=== PATIENT | female | born 1960 | race Caucasian/White ===

== ENCOUNTER 2018-01-28 23:17 | Observation (INO) ==
[2018-01-28] MEDS ORDERED: 0.9 % Sodium Chloride 1,000 ML IVC ONE (23:55)
[2018-01-28] MEDS ORDERED: Metoclopramide 10 MG/2 ML VIAL IVP ONE (23:56)
--- NOTE | 2018-01-28 23:56 | Emergency Department Note ---
Disposition Clinical Impression: Nausea and vomiting Qualifiers: Vomiting type: unspecified Vomiting Intractability: intractable Qualified Code( s): R11.2 - Nausea with vomiting, unspecified Disposition: Admitted As Inpatient Condition: Good Time of Disposition: 01:17 (Dr Deleon) Nausea/Vomiting/Diarrhea HPI - General Chief complaint: ED Abdominal Pain Stated complaint: continued vomiting Time Seen by Provider: 01/28/18 23:26 Source: patient Mode of arrival: ambulatory Limitations: no limitations Nursing Notes Reviewed: Yes Vital Signs Reviewed: Yes - History of Present Illness Pt Subjective Complaint: nausea, vomiting, abdominal pain Onset (ago): day(s) (3) Description of emesis: watery Associated Abdominal Pain: Yes If pain, Location of pain: epigastric Severity: mild Quality: cramping, stabbing Consistency: constant (Waxing and waning) Worsens with: eating, vomiting Context: other (Patient was seen in the ED for similar complaints with undetermined etiology. She was discharged home with antiemetic medication with no improvement. The patient was also seen by PCP today and was given suppository medication with no improvement.) Associated symptoms: Reports: fever/chills, nausea/vomiting, weakness. Denies: myalgias, chest pain, cough, diaphoresis, headaches, loss of appetite, malaise, rash, dysuria, shortness of breath, syncope - Related Data Home Medications Medication Instructions Recorded Confirmed Levothyroxine [Synthroid] 88 mcg PO DAILY 06/14/15 01/28/18 FLUoxetine HCl [Sarafem] 10 mg PO 01/28/18 hydrOXYzine HCl [Hydroxyzine HCl] 25 mg PO 01/28/18 Previous Rx's Medication Instructions Recorded Dicyclomine [Bentyl] 10 mg PO QID #10 capsule 01/28/18 Omeprazole 20 mg PO DAILY #20 tablet. 01/28/18 Ondansetron ODT [Zofran ODT] 4 mg SL Q4HR PRN #12 tab.otf 01/28/18 Promethazine [Phenergan] 12.5 mg PO Q8HR PRN 3 Days #10 mg 01/28/18 Allergies Allergy/AdvReac Type Severity Reaction Status Date / Time Sulfa (Sulfonamide AdvReac Rash Verified 01/28/18 03:30 Antibiotics) tetanus immune globulin AdvReac Hives Verified 01/28/18 03:30 All systems ED: reviewed and negative except as stated. Review of Systems: As Per HPI Past Medical History - Past Medical History Medical history: Reports: thyroid disease Psychiatric history: Reports: anxiety - Social History Smoking Status: Never smoker Smokeless Tobacco Status: No Alcohol use: Reports: none Drug use: Reports: none Physical Exam - General Limitations: no limitations General appearance: alert, in distress - Head Head exam: atraumatic, normocephalic, normal inspection - Eye Eye exam: Present: normal appearance, PERRL, EOMI - ENT ENT exam: normal exam, normal oropharynx, mucous membranes moist - Neck Neck exam: Present: normal inspection, full ROM, trachea midline - Chest Chest inspection: Present: normal inspection, symmetric chest wall rise - Respiratory Respiratory exam: Present: normal lung sounds bilaterally - Cardiovascular Cardiovascular exam: Present: regular rate, normal rhythm, normal heart sounds - Abdominal Exam Abdominal exam: Present: soft, tenderness. Absent: distention, guarding, rebound, rigidity, normal bowel sounds, mass, pulsatile mass Abdominal tenderness: Present: epigastrium, mild - Extremities Exam Extremities exam: Present: normal inspection, full ROM, normal capillary refill. Absent: tenderness, pedal edema - Neurological Exam Neurological exam: Present: alert, oriented X3, CN II-XII intact - Skin Skin exam: Present: warm, dry, intact, normal color Course Vital Signs Temperature 98.5 F 01/28/18 23:18 Pulse Rate 90 01/28/18 23:18 Respiratory Rate 16 01/28/18 23:18 Blood Pressure 121/80 01/28/18 23:18 O2 Sat by Pulse Oximetry 94 01/28/18 23:18 Temperature 98.7 F 01/29/18 03:08 Pulse Rate 84 01/29/18 03:08 Respiratory Rate 18 01/29/18 03:08 Blood Pressure 132/74 01/29/18 03:08 O2 Sat by Pulse Oximetry 95 01/29/18 03:08 Oxygen Delivery Oxygen Delivery Room Air Nausea/Vomiting/Diarrhea - MDM Narrative Medical decision making narrative: Nonspecific intractable nausea and vomiting. There is no clinical suspicion for perforated viscus. She will be admitted for hydration as well as symptomatic treatment. - Differential Diagnosis Likely: gastroenteritis, drug-induced nausea and vomitting, dehydration - Medical Records Medical records reviewed: Yes I reviewed the patient's medical records. - Lab Data Lab results reviewed: Yes I reviewed the patient's lab results. Result diagrams: 01/29/18 00:23 01/29/18 00:23 Lab Results 01/28/18 01/29/18 01/29/18 Range/Units 01:18 00:23 00:23 WBC 10.0 (4.3-11.1) K/mcL RBC 4.17 (3.82-4.97) M/mcL Hgb 12.2 (11.5-15.4) g/dL Hct 37.5 (35.3-44.9) % MCV 89.9 (83.0-100.0) fL MCH 29.3 (28.0-33.3) pg MCHC 32.5 (31.6-35.5) g/dL RDW 11.9 (11.5-14.5) % Plt Count 242 (140-400) K/mcL MPV 9.7 (9.4-12.4) fL Immature Gran % 0.3 (0-4) % Seg Neutrophils % 75.5 % Lymphocytes % 15.9 % Monocytes % 7.1 % Eosinophils % 0.9 % Basophils % 0.3 % Neutrophils # 7.6 (1.6-8.9) K/mcL Lymphocytes # 1.6 (0.6-4.6) K/mcL Monocytes # 0.7 (0.0-1.3) K/mcL Eosinophils # 0.1 (0.0-0.6) K/mcL Basophils # 0.0 (0.0-0.2) K/mcL Sodium 141 (136-145) mEq/L Potassium 3.6 (3.5-5.1) mEq/L Chloride 106 (98-107) mEq/L Carbon Dioxide 27 (23-29) mEq/L BUN 12 (6-20) mg/dL Creatinine 0.62 (0.60-1.20) mg/dL Est GFR ( Amer) > 60 (> 60) Est GFR (Non-Af Amer) > 60 (> 60) BUN/Creatinine Ratio 19 (6-26) Glucose 93 (70-105) mg/dL Calculated Osmolality 291 (280-300) Lactic Acid (0.5-2.2) mmol/L Calcium 9.0 (8.6-10.3) mg/dL Total Bilirubin 0.5 (0.3-1.0) mg/dL Direct Bilirubin 0.1 (0.0-0.2) mg/dL Indirect Bilirubin 0.4 (0.0-1.2) mg/dL AST 17 (13-39) Units/L ALT 11 (7-52) Units/L Alkaline Phosphatase 56 (34-104) Units/L Serum Total Protein 6.3 L (6.4-8.9) g/dL Albumin 3.9 (3.5-5.7) g/dL Globulin 2.4 (2.4-3.5) g/dL Albumin/Globulin Ratio 1.6 (1.1-2.2) Amylase 22 L (29-103) Units/L Lipase 6 L (11-82) Units/L Urine Color Yellow (Yellow) Urine Clarity Clear (Clear) Urine pH 5.5 (5.0-8.0) pH Units Ur Specific Burnett >= 1.030 H (1.010-1.025) Urine Protein Trace (Neg-Trace) mg/dL Urine Glucose (UA) Normal (Normal) mg/dL Urine Ketones 80 H (Negative) mg/dL Urine Blood Negative (Negative) Urine Nitrite Negative (Negative) Urine Bilirubin Small H (Negative) Urine Urobilinogen Normal (Normal) mg/dL Ur Leukocyte Esterase Trace H (Negative) Urine Microscopic WBC 3-5 H (0-3) per hpf Ur Squamous Epith Cells Few (None-Few) per lpf Urine Mucus Moderate H (Few) Ur Culture Indicated? YES A (NO) 01/29/18 Range/Units 00:23 WBC (4.3-11.1) K/mcL RBC (3.82-4.97) M/mcL Hgb (11.5-15.4) g/dL Hct (35.3-44.9) % MCV (83.0-100.0) fL MCH (28.0-33.3) pg MCHC (31.6-35.5) g/dL RDW (11.5-14.5) % Plt Count (140-400) K/mcL MPV (9.4-12.4) fL Immature Gran % (0-4) % Seg Neutrophils % % Lymphocytes % % Monocytes % % Eosinophils % % Basophils % % Neutrophils # (1.6-8.9) K/mcL Lymphocytes # (0.6-4.6) K/mcL Monocytes # (0.0-1.3) K/mcL Eosinophils # (0.0-0.6) K/mcL Basophils # (0.0-0.2) K/mcL Sodium (136-145) mEq/L Potassium (3.5-5.1) mEq/L Chloride (98-107) mEq/L Carbon Dioxide (23-29) mEq/L BUN (6-20) mg/dL Creatinine (0.60-1.20) mg/dL Est GFR ( Amer) (> 60) Est GFR (Non-Af Amer) (> 60) BUN/Creatinine Ratio (6-26) Glucose (70-105) mg/dL Calculated Osmolality (280-300) Lactic Acid 0.6 (0.5-2.2) mmol/L Calcium (8.6-10.3) mg/dL Total Bilirubin (0.3-1.0) mg/dL Direct Bilirubin (0.0-0.2) mg/dL Indirect Bilirubin (0.0-1.2) mg/dL AST (13-39) Units/L ALT (7-52) Units/L Alkaline Phosphatase (34-104) Units/L Serum Total Protein (6.4-8.9) g/dL Albumin (3.5-5.7) g/dL Globulin (2.4-3.5) g/dL Albumin/Globulin Ratio (1.1-2.2) Amylase (29-103) Units/L Lipase (11-82) Units/L Urine Color (Yellow) Urine Clarity (Clear) Urine pH (5.0-8.0) pH Units Ur Specific Burnett (1.010-1.025) Urine Protein (Neg-Trace) mg/dL Urine Glucose (UA) (Normal) mg/dL Urine Ketones (Negative) mg/dL Urine Blood (Negative) Urine Nitrite (Negative) Urine Bilirubin (Negative) Urine Urobilinogen (Normal) mg/dL Ur Leukocyte Esterase (Negative) Urine Microscopic WBC (0-3) per hpf Ur Squamous Epith Cells (None-Few) per lpf Urine Mucus (Few) Ur Culture Indicated? (NO)
[2018-01-29 00:39] LABS: Basophils % 0.3 %; Eosinophils # 0.1 K/mcL (0.0-0.6); Eosinophils % 0.9 %; Hematocrit 37.5 % (35.3-44.9); Hemoglobin 12.2 g/dL (11.5-15.4); Immature Granulocytes % 0.3 % (0-4); Lymphocytes # 1.6 K/mcL (0.6-4.6); Lymphocytes % 15.9 %; Mean Corpuscular HGB Conc 32.5 g/dL (31.6-35.5); Mean Corpuscular Hemoglobin 29.3 pg (28.0-33.3); Mean Corpuscular Volume 89.9 fL (83.0-100.0); Mean Platelet Volume 9.7 fL (9.4-12.4); Monocytes # 0.7 K/mcL (0.0-1.3); Monocytes % 7.1 %; Neutrophils # 7.6 K/mcL (1.6-8.9); Platelet Count 242 K/mcL (140-400); Red Blood Count 4.17 M/mcL (3.82-4.97); Red Cell Distribution Width 11.9 % (11.5-14.5); Segmented Neutrophils % 75.5 %
[2018-01-29 00:59] LABS: Alanine Aminotransferase 11 Units/L (7-52); Albumin 3.9 g/dL (3.5-5.7); Albumin/Globulin Ratio 1.6 (1.1-2.2); Alkaline Phosphatase 56 Units/L (34-104); Amylase 22 Units/L (29-103); Aspartate Amino Transferase 17 Units/L (13-39); BUN/Creatinine Ratio 19 (6-26); Bilirubin,Direct 0.1 mg/dL (0.0-0.2); Bilirubin,Indirect 0.4 mg/dL (0.0-1.2); Bilirubin,Total 0.5 mg/dL (0.3-1.0); Blood Urea Nitrogen 12 mg/dL (6-20); Carbon Dioxide 27 mEq/L (23-29); Chloride 106 mEq/L (98-107); Globulin 2.4 g/dL (2.4-3.5); Glucose 93 mg/dL (70-105); Lipase 6 Units/L (11-82); Osmolality,Calculated 291 (280-300); Potassium 3.6 mEq/L (3.5-5.1); Sodium 141 mEq/L (136-145); Total Protein 6.3 g/dL (6.4-8.9); eGFR For African Americans > 60 (> 60); eGFR For Non-African Americans > 60 (> 60)
[2018-01-29] MEDS ORDERED: Ondansetron 4 MG/2 ML VIAL IVP ONE (01:06)
[2018-01-29 01:19] LABS: Bilirubin,Urine Small (Negative); Blood,Urine Negative (Negative); Clarity,Urine Clear (Clear); Color,Urine Yellow (Yellow); Glucose,Urine (UA) Normal (Normal); Ketones,Urine 80 mg/dL (Negative); Leukocyte Esterase,Urine Trace (Negative); Nitrite,Urine Negative (Negative); PH,Urine 5.5 pH Units (5.0-8.0); Protein,Urine Trace mg/dL (Neg-Trace); Specific Gravity,Urine >= 1.030 (1.010-1.025); Urobilinogen,Urine Normal (Normal)
[2018-01-29 01:31] LABS: Mucus,Urine Moderate (Few); Squamous Epithelial Cell,Urine Few per lpf (None-Few)
[2018-01-29] MEDS ORDERED: Naloxone 0.4 MG/ML INJ IVP PRN (01:57)
[2018-01-29] MEDS ORDERED: Ketorolac 30 MG/ML VIAL IVP PRN (01:57)
[2018-01-29] MEDS ORDERED: Acetaminophen 325 MG TABLET PO PRN (01:57)
[2018-01-29] MEDS ORDERED: 0.9 % Sodium Chloride 1,000 ML IVC SCH (01:57)
[2018-01-29] MEDS ORDERED: Ondansetron 4 MG/2 ML VIAL IVP PRN (01:57)
[2018-01-29] MEDS ORDERED: Metoclopramide 10 MG/2 ML VIAL IVP PRN (01:57)
[2018-01-29] MEDS ORDERED: hydrOXYzine pamoate 25 MG CAPSULE PO SCH (09:00)
[2018-01-29] MEDS ORDERED: FLUoxetine HCl 10 MG CAPSULE PO SCH (09:00)
[2018-01-29 11:02] VITALS: BP 119/73
--- NOTE | 2018-01-29 11:52 | Internal Med History&Physical ---
Date of Encounter: 01/29/18 Time of Encounter: 11:20 Assessment and Plan (1) Nausea and vomiting Current visit: Yes Status: Acute Improved since admission. Possible resolving gastroenteritis. She feels improved overall and stable for discharge home. Qualifiers: Vomiting type: unspecified Vomiting Intractability: intractable Qualified Code(s): R11.2 - Nausea with vomiting, unspecified Internal Medicine - H&P: HPI Chief complaint: Vomiting Admitted From: Emergency Dept Plans for Post Hospital Care: Home History of present illness: Ms. Reynoso is a 57 year old female who came to emergency room stating she had onset of vomiting the evening of January 26. When it persisted she came to emergency room. She was treated and released. The vomiting persisted so she saw her PCP yesterday and was prescribed Phenergan and other medications. After several hours she had no improvement so came to emergency room can. She was evaluated and admitted to [facility] floor for ongoing care needs. She states she feels improved at present time and has not vomited for 12 hours. She denies hematemesis. Her abdominal discomfort from the vomiting has lessened. She has taken in oral liquids this morning without difficulty. She had slightly loose stool this morning but has not had ongoing diarrhea. Her GI history is pertinent for cholecystectomy. She denies disorders of her liver or exocrine pancreas. Past Med Surg Social Fam HX - Past Medical History Medical history: thyroid disease Additional medical history: States mother of colon cancer. Pt's last colonoscopy was in 2014. Psychiatric history: anxiety - Past Surgical History Surgical History: cholecystectomy, hysterectomy, thyroidectomy Additional surgical history: thyroidectomy. hysterectomy. cholecystectomy. bladder surgery. tonsillectomy. laparoscopy x6 - Social History Smoking Status: Never smoker Smokeless Tobacco Status: No Alcohol use: none Drug use: none Internal Medicine - H&P: Meds Levothyroxine [Synthroid] 88 mcg PO DAILY 06/14/15 [History] Dicyclomine [Bentyl] 10 mg PO QID #10 capsule 01/28/18 [Rx] FLUoxetine HCl [Sarafem] 10 mg PO 01/28/18 [History] Omeprazole 20 mg PO DAILY #20 tablet. 01/28/18 [Rx] Ondansetron ODT [Zofran ODT] 4 mg SL Q4HR PRN #12 tab.otf 01/28/18 [Rx] Promethazine [Phenergan] 12.5 mg PO Q8HR PRN 3 Days #10 mg 01/28/18 [Rx] hydrOXYzine HCl [Hydroxyzine HCl] 25 mg PO 01/28/18 [History] 3 Allergy/AdvReac Type Severity Reaction Status Date / Time Sulfa (Sulfonamide AdvReac Rash Verified 01/28/18 03:30 Antibiotics) tetanus immune globulin AdvReac Hives Verified 01/28/18 03:30 All Systems PM: A 10-system review of systems was performed and is negative for pertinent findings except as documented above in the HPI. Review of systems: Gen.: She states her weight has been stable the past few months. Cardiovascular: She denies [place] hypertension heart failure angina DVT or pulmonary embolus Respiratory: She is a lifelong nonsmoker and has no known chronic lung disease GI: She denies disorders of her liver gallbladder or exocrine pancreas : She denies hematuria dysuria or kidney stones Neurologic: She denies large distribution strokes or seizures. Endocrine: She had thyroid cysts with complete thyroidectomy in the past. She is now on replacement Synthroid. She denies diabetes or hyperlipidemia Hematology/oncology: She denies blood disorders cancers or anemia Psychiatric: She had depression fall 2017 and was placed on antidepressant medication. This is now being weaned. She denies anxiety or other mental health issues [place] skeletal: She denies arthritis gout or other bone joint or muscle disorders. - Constitutional Vitals: Temp Pulse Resp BP Pulse Ox 98.7 F 86 16 119/73 97 01/29/18 10:10 01/29/18 10:10 01/29/18 10:10 01/29/18 10:10 01/29/18 10:10 Exam: Gen.: She is a well-developed well-nourished female resting comfortably in bed who appears in no acute distress HEENT: Head is atraumatic and normocephalic. Eyes: EOMI. There is no scleral icterus. Mouth: Mucosa is moist. Neck: Supple and nontender. There is no thyromegaly or adenopathy noted. Heart: Regular without murmurs gallops or ectopics Lungs: No wheezes or crackles are heard. Abdomen: There is mild tenderness in the epigastric area to palpation. No masses or guarding are noted. Bowel sounds are present. The abdomen is not distended. Extremities: There is no cyanosis edema or clubbing noted. Dorsalis pedis and posttibial pulses are 2/2 bilaterally. Neurologic: Mental status: She is talkative and a good historian. Cranial nerves: Smile is symmetric. Forehead wrinkles bilaterally. Tongue protrudes midline. EOMI. Motor: There is no pronator drift. Cerebellar: Finger to nose is intact bilaterally. Skin: Warm and dry Internal Med - H&P Results - Labs CBC & Chem 7: 01/29/18 00:23 01/29/18 00:23
--- NOTE | 2018-01-29 12:11 | Discharge Summary ---
Date of Encounter: 01/29/18 Time of Encounter: 11:20 - Discharge Diagnosis (1) Nausea and vomiting Priority: Primary Status: Acute Qualifiers: Vomiting type: unspecified Vomiting Intractability: intractable Qualified Code(s): R11.2 - Nausea with vomiting, unspecified Hospital course: Ms. Reynoso is a 57 year old female who came to emergency room stating she had onset of vomiting the evening of January 26. When it persisted she came to emergency room. She was treated and released. The vomiting persisted so she saw her PCP yesterday and was prescribed Phenergan and other medications. After several hours she had no improvement so came to emergency room again. She was evaluated and admitted to [facility] for ongoing care needs. Initial orders were written by the emergency room physician. I saw her the morning of January 29 and performed a history physical and discharge. By the time I saw her she stated she had not vomited in approximately 12 hours. She tolerated adequate amounts of liquids and felt stable for discharge home which I felt was reasonable. She will follow with her PCP Dr. Guido within 1 week. She will advance diet as tolerated. TSH was significantly suppressed at 0.062 on 01/13/2018. Her PCP Dr. Guido is monitoring her thyroid medications. - Time Spent with Patient Total time spent providing and/or coordinating discharge services: - Discharge Medications Home Medications: Levothyroxine [Synthroid] 88 mcg PO DAILY 06/14/15 [History] FLUoxetine HCl [Sarafem] 10 mg PO 01/28/18 [History] Omeprazole 20 mg PO DAILY #20 tablet. 01/28/18 [Rx] Ondansetron ODT [Zofran ODT] 4 mg SL Q4HR PRN #12 tab.rapdis 01/28/18 [Rx] Promethazine [Phenergan] 12.5 mg PO Q8HR PRN 3 Days #10 mg 01/28/18 [Rx] hydrOXYzine HCl [Hydroxyzine HCl] 25 mg PO 01/28/18 [History] Allergies/Adverse Reactions: 3 Allergy/AdvReac Type Severity Reaction Status Date / Time Sulfa (Sulfonamide AdvReac Rash Verified 01/28/18 03:30 Antibiotics) tetanus immune globulin AdvReac Hives Verified 01/28/18 03:30 Date of admission: 01/29/18 01:20 Primary care physician: Eduin Guido DO - Constitutional Vitals: Temp Pulse Resp BP Pulse Ox 98.7 F 86 16 119/73 97 01/29/18 10:10 01/29/18 10:10 01/29/18 10:10 01/29/18 10:10 01/29/18 10:10 - Patient Status Disposition: Home, Self-Care Condition: Good Overall status at discharge: patient is progressing back to baseline - Discharge Instructions Follow Up With: Eduin Guido DO [Primary Care Provider] - 1 week - Diet and Activity Activity: resume usual activities as tolerated Diet: advance to your usual diet
== END 2018-01-29 13:55 | disposition home or self-care (01) ==
LOC: EMEROOPIK 23:17 → INPPIK 23:17
PROVIDERS: ADMIT Internal Medicine; ATTEND Internal Medicine